=== PATIENT | female | born 1995 | race Caucasian/White ===

== ENCOUNTER 2017-11-15 12:08 | Emergency (ER) | payer OTHER ==
[2017-11-15 12:14] VITALS: BP 153/99; PULSE 87; TEMP 98.8; BMI 30.4
--- NOTE | 2017-11-15 12:30 | PDOC ---
History of Present Illness - General Chief Complaint: Suicidal Stated Complaint: ANXIETY ATTACK Time Seen by Provider: 11/15/17 12:29 Past History - Past Medical History Allergies/Adverse Reactions: Allergies Allergy/AdvReac Type Severity Reaction Status Date / Time No Known Allergies Allergy Verified 11/15/17 12:14 Home Medications: Ambulatory Orders Norethindrone-Ethinyl Estrad [Nortrel] 1 each PO DAILY 11/15/17 COPD: No - Suicide/Smoking/Psychosocial Hx Smoking History: Never smoked *Physical Exam - Vital Signs Last Vital Signs Temp Pulse Resp BP Pulse Ox 98.8 F 87 18 153/99 99 11/15/17 12:10 11/15/17 12:10 11/15/17 12:10 11/15/17 12:10 11/15/17 12:10 ED Treatment Course - LABORATORY CBC & Chemistry Diagram: 11/15/17 13:00 11/15/17 13:00 *DC/Admit/Observation/Transfer Diagnosis at time of Disposition: Depression (emotion) Qualifiers: Depression Type: major depressive disorder Major depression recurrence: unspecified whether recurrent Active/Remission status: remission status unspecified Qualified Code(s): F32.9 - Major depressive disorder, single episode , unspecified - Discharge Dispostion Disposition: HOME Condition at time of disposition: Stable Decision to Admit order: No - Referrals - Patient Instructions Printed Discharge Instructions: DI for Suicidal Ideation-Adult Additional Instructions: Please follow up with your therapist's office tomorrow morning as previously scheduled. I have attached a copy of the test results from today's visit. Please take this packet with you so the practice can review it. Go to the nearest emergency department if you feel like your condition has worsened and requires additional emergency evaluation. Print Language: BRAZILIAN - Post Discharge Activity Forms/Work/School Notes: My Personal Safety Plan
[2017-11-15] MEDS ORDERED: ONDANSETRON *ODT* 4 MG TABLET ONE (12:54)
[2017-11-15 13:28] LABS: BASO % 0.2 % (0-2.0); EOS % 0.4 % (0-4.5); HEMATOCRIT 41.8 % (32.4-45.2); HEMOGLOBIN 13.8 GM/dL (10.7-15.3); LYMPH % 19.7 % (8-40); MCH 28.3 pg (25.7-33.7); MCHC 33.1 g/dl (32.0-36.0); MEAN CELL VOLUME 85.3 fl (80-96); MONO % 2.8 % (3.8-10.2); NEUT % 76.9 % (42.8-82.8); PLATELET COUNT 374 K/MM3 (134-434); RDW 13.9 % (11.6-15.6); WHITE BLOOD COUNT 10.4 K/mm3 (4.0-10.0)
[2017-11-15 13:34] LABS: HCG,QUALITATIVE URINE Negative
[2017-11-15 13:58] LABS: URINE APPEARANCE CLEAR; URINE BILIRUBIN NEGATIVE (<2.0 mg/dL); URINE COLOR STRAW; URINE GLUCOSE (UA) NEGATIVE (NEGATIVE); URINE KETONE NEGATIVE (NEGATIVE); URINE LEUK ESTERASE TRACE (NEGATIVE); URINE NITRITE NEGATIVE (NEGATIVE); URINE PROTEIN NEGATIVE (NEGATIVE); URINE UROBILINOGEN NEGATIVE mg/dL (0.2-1.0)
[2017-11-15 13:59] LABS: ALK PHOS 69 U/L (45-117); ANION GAP 7 MMOL/L (8-16); BILIRUBIN,TOTAL 0.3 mg/dL (0.2-1); BLOOD UREA NITROGEN 8 mg/dL (7-18); CALCIUM 9.2 mg/dL (8.5-10.1); CHLORIDE 107 mmol/L (98-107); CO2 26 mmol/L (21-32); CREATININE 0.9 mg/dL (0.55-1.3); GLUCOSE,RANDOM 87 mg/dL (74-106); POTASSIUM 3.6 mmol/L (3.5-5.1); SGOT/AST 17 U/L (15-37); SGPT/ALT 21 U/L (13-61); SODIUM 139 mmol/L (136-145); TOT PROT 8.2 g/dl (6.4-8.2)
[2017-11-15 14:05] LABS: COCAINE, UR NEGATIVE ng/ml (CUTOFF=300); METHADONE, UR NEGATIVE ng/ml (CUTOFF=300); OPIATES, URI NEGATIVE ng/ml (CUTOFF=300); PHENCYCLIDINE,URINE NEGATIVE ng/ml (CUTOFF=25); URINE AMPHETAMINES NEGATIVE ng/ml (CUTOFF=500); URINE BARBITURATES NEGATIVE ng/ml (CUTOFF=200); URINE BENZODIAZEPINES NEGATIVE ng/ml (CUTOFF=200)
[2017-11-15 14:11] LABS: EPI CELLS RARE /HPF (FEW)
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
--- NOTE | 2017-11-15 16:59 | EKG ---
Test Reason : Blood Pressure : / mmHG Vent. Rate : 074 BPM Atrial Rate : 074 BPM P-R Int : 150 ms QRS Dur : 096 ms QT Int : 376 ms P-R-T Axes : 044 013 010 degrees QTc Int : 417 ms NORMAL SINUS RHYTHM NORMAL ECG NO PREVIOUS ECGS AVAILABLE Confirmed by MD Ed, Naren ([id number]) on 11/15/2017 4:58:37 PM Referred By: Confirmed By:Naren Ward MD
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
== END 2017-11-15 17:52 | disposition home or self-care (01) ==
LOC: JER 12:08
DX: F32.9 Major depressive disorder, single episode, unspecified (principal); F41.8 Other specified anxiety disorders
CPT/HCPCS: 36415; 80053; 80307; 81003; 81015; 84443; 84703; 85025; 93005; 93010; 99284-25

== ENCOUNTER 2022-10-03 13:54 | Emergency (ER) | payer OTHER ==
[2022-10-03 14:10] VITALS: BP 120/82; PULSE 93; RESP 17; TEMP 97.6; BMI 46.0
[2022-10-03] MEDS ORDERED: ACETAMINOPHEN 325 MG TABLET (FP) PO ONE (14:51)
[2022-10-03] MEDS ORDERED: ACETAMINOPHEN 500 MG TABLET (FP) ONE (15:08)
== END 2022-10-03 15:43 | disposition home or self-care (01) ==
LOC: JERFT 13:54
DX: S93.401A Sprain of unspecified ligament of right ankle, initial encounter (principal); X50.1XXA Overexertion from prolonged static or awkward postures, initial encounter; Y93.01 Activity, walking, marching and hiking
CPT/HCPCS: 73610-TC-RT-FY; 73630-TC-RT-FY; 99283-25

== ENCOUNTER 2023-01-19 17:47 | Emergency (ER) | payer OTHER ==
[2023-01-19 17:58] VITALS: RESP 18; BMI 46.0
[2023-01-19] MEDS ORDERED: ACETAMINOPHEN 1000 MG/100 ML BAG IVPB ONE (19:26)
[2023-01-19] MEDS ORDERED: METOCLOPRAMIDE HCL INJECTION 10 MG/2 ML VIAL IVPUSH ONE (19:26)
[2023-01-19] MEDS ORDERED: SODIUM CHLORIDE 0.9% 1000 ML INFUS.BAG IV ONE (19:26)
[2023-01-19] MEDS ORDERED: METOCLOPRAMIDE HCL INJECTION 10 MG/2 ML VIAL ONE (19:56)
[2023-01-19] MEDS ORDERED: ACETAMINOPHEN INJECTION 100 ML IVPB ONE (19:56)
[2023-01-19 20:03] LABS: BASO % 0.2 % (0-2.0); HEMATOCRIT 39.6 % (32.4-45.2); HEMOGLOBIN 13.1 GM/dL (10.7-15.3); LYMPH % 9.8 % (8-40); MCH 26.9 pg (25.7-33.7); MCHC 33.1 g/dl (32.0-36.0); MEAN CELL VOLUME 81.4 fl (80-96); MEAN PLT VOLUME 7.8 fl (7.5-11.1); MONO % 3.8 % (3.8-10.2); NEUT % 86.2 % (42.8-82.8); PLATELET COUNT 468 10^3/uL (134-434); RBC 4.86 M/mm3 (3.60-5.2); RDW 15.4 % (11.6-15.6); WHITE BLOOD COUNT 16.9 K/mm3 (4.0-10.0)
[2023-01-19 20:29] LABS: POTASSIUM 3.9 mmol/L (3.5-5.1)
[2023-01-19 20:31] LABS: ALBUMIN 3.7 g/dl (3.4-5.0); CALCIUM 9.4 mg/dL (8.5-10.1)
[2023-01-19 20:32] LABS: BLOOD UREA NITROGEN 9.7 mg/dL (7-18)
[2023-01-19 20:35] LABS: CREATININE 0.8 mg/dL (0.55-1.3)
[2023-01-19 20:37] LABS: BILIRUBIN,TOTAL 0.4 mg/dL (0.2-1)
[2023-01-19 20:46] LABS: LACTIC ACID 2.9 mmol/L (0.4-2.0)
[2023-01-19 23:27] LABS: EPI CELLS >36 /uL (0-25.1); HYALINE CASTS 1 /uL (0-3.1); URINE APPEARANCE CLOUDY; URINE BACTERIA 1887 /uL (0-1359); URINE BILIRUBIN NEGATIVE (NEGATIVE); URINE COLOR YELLOW; URINE GLUCOSE (UA) NEGATIVE (NEGATIVE); URINE KETONE NEGATIVE (NEGATIVE); URINE LEUK ESTERASE NEGATIVE (NEGATIVE); URINE NITRITE NEGATIVE (NEGATIVE); URINE PROTEIN TRACE (NEGATIVE); URINE RBC 145 /uL (0-23.9); URINE UROBILINOGEN 0.2 mg/dL (0.2-1.0)
[2023-01-19] MEDS ORDERED: CEFTRIAXONE 1,000 MG in DEXTROSE 5%-WATER - 50 ML IVPB ONE (23:34)
[2023-01-19] MEDS ORDERED: CEFTRIAXONE 1 GM/50 ML BAG ONE (23:47)
[2023-01-20 00:12] LABS: LACTIC ACID 2.2 mmol/L (0.4-2.0)
[2023-01-20] MEDS ORDERED: SODIUM CHLORIDE 0.9% 1000 ML INFUS.BAG IV ONE (00:32)
[2023-01-20] MEDS ORDERED: KETOROLAC TROMETHAMINE 15 MG/ML VIAL IVPUSH ONE (00:32)
[2023-01-20] MEDS ORDERED: KETOROLAC TROMETHAMINE 15 MG/ML VIAL ONE (01:04)
[2023-01-20 01:22] VITALS: BP 117/73; PULSE 72; TEMP 99
== END 2023-01-20 03:08 | disposition home or self-care (01) ==
LOC: JER 17:47
PROC: 3E033NZ Introduction of Analgesics, Hypnotics, Sedatives into Peripheral Vein, Percutaneous Approach (ICD-10-PCS; 2023-01-19)
PROC: 3E033GC Introduction of Other Therapeutic Substance into Peripheral Vein, Percutaneous Approach (ICD-10-PCS; 2023-01-19)
PROC: 3E03329 Introduction of Other Anti-infective into Peripheral Vein, Percutaneous Approach (ICD-10-PCS; principal; 2023-01-20)
PROC: 3E0333Z Introduction of Anti-inflammatory into Peripheral Vein, Percutaneous Approach (ICD-10-PCS; 2023-01-20)
DX: G44.209 Tension-type headache, unspecified, not intractable (principal); R42 Dizziness and giddiness; R50.9 Fever, unspecified; R53.83 Other fatigue; R09.81 Nasal congestion; M79.10 Myalgia, unspecified site; N39.0 Urinary tract infection, site not specified; Z20.822 Contact with and (suspected) exposure to COVID-19
CPT/HCPCS: 0241U-QW; 36415; 70486-TC; 71046-TC-FY; 80053; 81003; 83605; 85025; 99285-25

== ENCOUNTER 2023-01-22 18:12 | Emergency (ER) | payer OTHER ==
[2023-01-22 18:34] VITALS: BP 144/92; PULSE 103; RESP 17; TEMP 98.3; BMI 46.0
[2023-01-22] MEDS ORDERED: SODIUM CHLORIDE 0.9% 500 ML INFUS.BAG IV ONE (18:51)
[2023-01-22] MEDS ORDERED: METOCLOPRAMIDE HCL INJECTION 10 MG/2 ML VIAL IVPUSH ONE (18:52)
[2023-01-22] MEDS ORDERED: ACETAMINOPHEN 500 MG TABLET (FP) PO ONE (18:52)
[2023-01-22 19:04] LABS: BASO % 0.7 % (0-2.0); EOS % 2.9 % (0-4.5); HEMOGLOBIN 14.5 GM/dL (10.7-15.3); LYMPH % 33.6 % (8-40); MEAN CELL VOLUME 81.8 fl (80-96); MEAN PLT VOLUME 7.4 fl (7.5-11.1); MONO % 5.3 % (3.8-10.2); NEUT % 57.5 % (42.8-82.8); PLATELET COUNT 464 10^3/uL (134-434); RBC 5.38 M/mm3 (3.60-5.2); RDW 15.2 % (11.6-15.6); WHITE BLOOD COUNT 12.7 K/mm3 (4.0-10.0)
[2023-01-22] MEDS ORDERED: METOCLOPRAMIDE HCL INJECTION 10 MG/2 ML VIAL ONE (19:24)
[2023-01-22] MEDS ORDERED: ACETAMINOPHEN 325 MG TABLET (FP) ONE (19:24)
[2023-01-22 19:50] LABS: ALBUMIN 3.9 g/dl (3.4-5.0); BILIRUBIN,TOTAL 0.6 mg/dL (0.2-1); BLOOD UREA NITROGEN 4.4 mg/dL (7-18); CALCIUM 9.9 mg/dL (8.5-10.1); POTASSIUM 3.3 mmol/L (3.5-5.1); TOT PROT 8.6 g/dl (6.4-8.2)
== END 2023-01-22 21:04 | disposition home or self-care (01) ==
LOC: JER 18:12
PROC: 3E033GC Introduction of Other Therapeutic Substance into Peripheral Vein, Percutaneous Approach (ICD-10-PCS; principal; 2023-01-22)
DX: R51.9 Headache, unspecified (principal); H53.2 Diplopia
CPT/HCPCS: 36415; 70450-TC; 80053; 84703; 85025; 99284-25